=== PATIENT | female | born 1965 | race Caucasian/White ===

== ENCOUNTER 2017-07-19 16:59 | Emergency (ER) | payer SELFPAY ==
[2017-07-19 17:05] VITALS: BP 137/99
--- NOTE | 2017-07-19 17:34 | PHYS DOC ---
Adult General Chief Complaint Chief Complaint: MECHANICAL FALL HPI HPI 52-year-old female presents after fall at home. The patient was moving a table that was partially stuck to the floor. Let loose and gave way she flew over the tip wall and into a chair. She hit the right side of her face, her right ribs, and her right knee hit the ground. She already has a previous injury to the right knee. She was able to walk. Her greatest pain is in the right maxilla. She is concern for fracture. It is already bruised and mildly swollen. He denies being knocked out. She denies chest pain or shortness of breath. Her ribs do not hurt when she breathes. Review of Systems Review of Systems Constitutional: Denies fever or chills [] Eyes: Periorbital bruising and swelling of the right eye[] HENT: Denies nasal congestion or sore throat [] Respiratory: Denies cough or shortness of breath [] Cardiovascular: No additional information not addressed in HPI [] GI: Denies abdominal pain, nausea, vomiting, bloody stools or diarrhea [] : Denies dysuria or hematuria [] Musculoskeletal: Right rib pain, right knee pain.[] Integument: Denies rash or skin lesions [] Neurologic: Denies headache, focal weakness or sensory changes [] Endocrine: Denies polyuria or polydipsia [] All other systems were reviewed and found to be within normal limits, except as documented in this note. Physical Exam Physical Exam Constitutional: Well developed, well nourished, no acute distress, non-toxic appearance. [] HENT: The patient has bruising and swelling around the right eye, lateral aspect. Her maxilla is very tender to palpation.[] Eyes: PERRLA, EOMI, conjunctiva normal, no discharge. [] Neck: Normal range of motion, no tenderness, supple, no stridor. [] Cardiovascular:Heart rate regular rhythm, no murmur [] Lungs & Thorax: Bilateral breath sounds clear to auscultation [] Abdomen: Bowel sounds normal, soft, no tenderness, no masses, no pulsatile masses. [] Skin: Warm, dry, no erythema, no rash. [] Back: No tenderness, no CVA tenderness. [] Extremities: Ribs are mildly tender to palpation. No difficulty breathing. The right knee is painful over the patella. Ligaments are intact. [] Neurologic: Alert and oriented X 3, normal motor function, normal sensory function, no focal deficits noted. [] Psychologic: Affect normal, judgement normal, mood normal. [] EKG EKG [] Radiology/Procedures Radiology/Procedures Examination: 3 views of the facial bones HISTORY: History of fall, pain COMPARISON: None available. FINDINGS: No evidence of fall nasal bone fracture identified. The bilateral orbital portillo appear intact. The bilateral maxillary sinuses, mastoid air cells are clear. IMPRESSION: No obvious displaced fracture. Electronically signed by: Shubham Castillo MD (07/19/2017 6:02 PM) [facility] DICTATED AND SIGNED BY: SHUBHAM CASTILLO MD DATE: 07/19/17 1800 CC: BUCKY BENEDICT DO; RIVER LUCERO DO ~ Examination: 4 views of the right knee HISTORY: History of fall, right knee pain COMPARISON: None available Findings: The alignment of the knee joint grossly appears unremarkable. There is no obvious acute fracture identified. No significant knee joint effusion is identified. IMPRESSION: No acute osseous findings. Electronically signed by: Shubham Castillo MD (07/19/2017 6:03 PM) [facility] DICTATED AND SIGNED BY: SHUBHAM CASTILLO MD DATE: 07/19/17 1802 CC: BUCKY BENEDICT DO; RIVER LUCERO DO ~ [] Course & Med Decision Making Course & Med Decision Making Pertinent Labs and Imaging studies reviewed. (See chart for details) The patient's facial and knee x-rays are negative for fracture. Based on her exam, do not believe her about x-rays were necessary. I will discharge the patient with [place] 5/325 for pain. [] Dragon Disclaimer Dragon Disclaimer This electronic medical record was generated, in whole or in part, using a voice recognition dictation system. Departure Departure: Referrals: RIVER LUCERO DO (PCP) BUCKY BENEDICT DO July 19, 2017 17:34
--- NOTE | 2017-07-19 18:05 | RAD ---
Examination: 3 views of the facial bones HISTORY: History of fall, pain COMPARISON: None available. FINDINGS: No evidence of fall nasal bone fracture identified. The bilateral orbital portillo appear intact. The bilateral maxillary sinuses, mastoid air cells are clear. IMPRESSION: No obvious displaced fracture. Electronically signed by: Shubham Castillo MD (07/19/2017 6:02 PM) [facility]
--- NOTE | 2017-07-19 18:07 | RAD ---
Examination: 4 views of the right knee HISTORY: History of fall, right knee pain COMPARISON: None available Findings: The alignment of the knee joint grossly appears unremarkable. There is no obvious acute fracture identified. No significant knee joint effusion is identified. IMPRESSION: No acute osseous findings. Electronically signed by: Shubham Castillo MD (07/19/2017 6:03 PM) [facility]
[2017-07-19] MEDS ORDERED: HYDR-971 PO (18:20)
[2017-07-19] MEDS ORDERED: HYDROcodone/APAP 5/325MG 1 TAB TABLET ONE (18:22)
[2017-07-19] MEDS ORDERED: HYDROcodone/APAP 5/325MG 1 TAB TABLET PO ONE (18:30)
== END 2017-07-19 18:25 | disposition home or self-care (01) ==
LOC: ER 16:59
DX: S00.11XA Contusion of right eyelid and periocular area, initial encounter (principal); M25.561 Pain in right knee; R07.81 Pleurodynia; W18.09XA Striking against other object with subsequent fall, initial encounter; Y93.89 Activity, other specified; Y99.8 Other external cause status; Y92.89 Other specified places as the place of occurrence of the external cause
CPT/HCPCS: 70150; 73564; 99284

== ENCOUNTER 2017-11-01 11:46 | Emergency (ER) | payer SELFPAY ==
[~2017-11-01 11:46] MED LIST: HYDR-971 PO
[2017-11-01 12:00] VITALS: BP 128/88
[2017-11-01] MEDS ORDERED: HYDROcodone/APAP 5/325MG 1 TAB TABLET ONE (12:17)
[2017-11-01] MEDS ORDERED: HYDROcodone/APAP 5/325MG 1 TAB TABLET PO ONE (12:45)
--- NOTE | 2017-11-01 12:59 | RAD ---
EXAM: AP, oblique, lateral and tangential patellar views of the left knee DATE: 11/01/2017 12:15 PM INDICATION: Twisting injury 10/30/17 with pop, severe pain to left knee COMPARISON: No Prior FINDINGS/ IMPRESSION: No evidence of acute fracture or dislocation. Joint spaces are preserved without significant degenerative/proliferative change. No knee joint effusion. Neutral patellar tracking. Electronically signed by: Ian Fry MD (11/01/2017 12:56 PM) [facility]
[2017-11-01] MEDS ORDERED: HYDR-971 PO (13:06)
--- NOTE | 2017-11-01 13:06 | PHYS DOC ---
Past History Past Medical History: Hypertension Past Surgical History: Knee Replacement Smoking: Non-smoker Alcohol Use: None Drug Use: None Adult General Chief Complaint Chief Complaint: KNEE INJURY HPI HPI Patient is a 52 year old female who presents with complaining of left knee injury and pain. Patient states she twisted her left knee 3 days ago because of a bowel movement and since then has had pain and limited range of motion. Patient rated her pain severe with standing up patient states she had left knee surgery 9 years ago. Patient denies focal neuro deficit and other injuries. Review of Systems Review of Systems Constitutional: Denies fever or chills [] Eyes: Denies change in visual acuity, redness, or eye pain [] HENT: Denies nasal congestion or sore throat [] Respiratory: Denies cough or shortness of breath [] Cardiovascular: No additional information not addressed in HPI [] GI: Denies abdominal pain, nausea, vomiting, bloody stools or diarrhea [] : Denies dysuria or hematuria [] Musculoskeletal: Denies back pain, reports joint pain [] Integument: Denies rash or skin lesions [] Neurologic: Denies headache, focal weakness or sensory changes [] Endocrine: Denies polyuria or polydipsia [] All other systems were reviewed and found to be within normal limits, except as documented in this note. Current Medications Current Medications Current Medications Medications (Trade) Dose Ordered Sig/Brianna Start Time Stop Time Status Last Admin Dose Admin Acetaminophen/ Hydrocodone Bitart (Lortab 5/325) 1 tab STK-MED ONCE 11/01/17 12:17 11/01/17 12:18 DC Allergies Allergies Allergies Coded Allergies Type Severity Reaction Last Updated Verified NSAIDS (Non-Steroidal Anti-Inflamma Allergy Intermediate 07/19/17 Yes codeine Allergy Intermediate 07/19/17 Yes dicyclomine Allergy Intermediate 07/19/17 Yes gabapentin Allergy Intermediate 07/19/17 Yes tramadol Allergy Intermediate 07/19/17 Yes Physical Exam Physical Exam Constitutional: Well developed, well nourished, mild distress, non-toxic appearance. [] HENT: Normocephalic, atraumatic Eyes: PERRLA, EOMI, conjunctiva normal, no discharge. [] Neck: Normal range of motion, no tenderness, supple, no stridor. [] Cardiovascular:Heart rate regular rhythm, no murmur [] Lungs & Thorax: Bilateral breath sounds clear to auscultation [] Extremities: Left knee without deformity or edema or sign of injury, painful range of motion, no neurovascular deficit, no edema. [] Neurologic: Alert and oriented X 3, normal motor function, normal sensory function, no focal deficits noted. [] Psychologic: Affect normal, judgement normal, mood normal. [] Current Patient Data Vital Signs Vital Signs Date Time Temp Pulse Resp B/P (MAP) Pulse Ox O2 Delivery O2 Flow Rate FiO2 11/01/17 12:00 Room Air 11/01/17 12:00 98.0 96 20 96 EKG EKG [] Radiology/Procedures Radiology/[place] [address] IMAGING REPORT Signed PATIENT: KYLIE UPTON ACCOUNT: [id number] : 1965 LOCATION: ER AGE: 52 SEX: F EXAM STATUS: PRE ER ORD. PHYSICIAN: RUPA FISHER MD REASON: Twisting injury 10/30/17 with pop, severe pain to left knee PROCEDURE: KNEE LEFT 4V EXAM: AP, oblique, lateral and tangential patellar views of the left knee DATE: 11/01/2017 12:15 PM INDICATION: Twisting injury 10/30/17 with pop, severe pain to left knee COMPARISON: No Prior FINDINGS/ IMPRESSION: No evidence of acute fracture or dislocation. Joint spaces are preserved without significant degenerative/proliferative change. No knee joint effusion. Neutral patellar tracking. Electronically signed by: Ian Allen MD (11/01/2017 12:56 PM) [facility] DICTATED AND SIGNED BY: IAN ALLEN MD DATE: 11/01/17 0596 CC: RIVER LUCERO DO; RUPA FISHER MD ~ Course & Med Decision Making Course & Med Decision Making Pertinent Imaging studies reviewed. (See chart for details) Evaluation of patient in ER showed 52-year-old male patient with injury to left knee and complaining of pain that increases with walking. Patient had unremarkable physical exam. X-ray did not show abnormality. Ochoa wrap was applied and patient treated with [place] with improvement of her pain. Patient instructed to use Crutches and follow up with her primary care physician/ orthopedist physician. [] Dragon Disclaimer Dragon Disclaimer This electronic medical record was generated, in whole or in part, using a voice recognition dictation system. Departure Departure: Impression: Primary Impression: Left knee sprain Disposition: HOME, SELF-CARE (at 1305) Condition: IMPROVED Referrals: RIVER LUCERO DO (PCP) Patient Instructions: Knee Sprain Additional Instructions: Apply ice on your left knee Follow-up with your primary care physician in 3-5 days Return to ER if not getting better Scripts Hydrocodone Bit/Acetaminophen ([place] 5-325 TABLET) 1 Each Tablet 1 TAB PO PRN Q6HRS PRN for PAIN, #14 TAB 0 Refills Prov: RUPA FISHER MD 11/01/17 RUPA FISHER MD Nov 01, 2017 13:06
== END 2017-11-01 13:00 | disposition home or self-care (01) ==
LOC: ER 11:46
DX: S83.92XA Sprain of unspecified site of left knee, initial encounter (principal); I10 Essential (primary) hypertension; Z88.6 Allergy status to analgesic agent; Z88.5 Allergy status to narcotic agent; Z88.8 Allergy status to other drugs, medicaments and biological substances; X50.1XXA Overexertion from prolonged static or awkward postures, initial encounter; Y93.89 Activity, other specified; Y92.89 Other specified places as the place of occurrence of the external cause; Y99.8 Other external cause status
CPT/HCPCS: 73564; 99284

== ENCOUNTER 2018-01-16 11:59 | Emergency (ER) | payer SELFPAY ==
[~2018-01-16] VITALS: Ht 170.2 cm; Wt 86.6 kg
[~2018-01-16 11:59] MED LIST changes: +HYDR-3165 PO; -HYDR-971 PO
[2018-01-16 12:22] VITALS: BP 133/86
--- NOTE | 2018-01-16 12:37 | PHYS DOC ---
Past History Past Medical History: Hypertension Past Surgical History: Knee Replacement Smoking: Non-smoker Alcohol Use: None Drug Use: None Adult General Chief Complaint Chief Complaint: FOOT INJURY PAIN HPI HPI 52-year-old female presents with right heel pain. Patient states that she has had some increased soreness in her right heel for last few days because she has been doing a lot more walking than usual. She did not walk yesterday or today. She states when she woke up this morning the pain was increased. Her foot was hanging off the bed when she woke up. She describes it as a moderate, sharp pain in the medial heel region. She states that pushing on that area is painful and standing on the foot is painful. She denies any direct trauma. No history of previous injury. Review of Systems Review of Systems Constitutional: Denies fever or chills [] Eyes: Denies change in visual acuity, redness, or eye pain [] HENT: Denies nasal congestion or sore throat [] Respiratory: Denies cough or shortness of breath [] Cardiovascular: No additional information not addressed in HPI [] GI: Denies abdominal pain, nausea, vomiting, bloody stools or diarrhea [] : Denies dysuria or hematuria [] Musculoskeletal: Right foot pain [] Integument: Denies rash or skin lesions [] Neurologic: Denies headache, focal weakness or sensory changes [] Endocrine: Denies polyuria or polydipsia [] All other systems were reviewed and found to be within normal limits, except as documented in this note. Allergies Allergies Allergies Coded Allergies Type Severity Reaction Last Updated Verified NSAIDS (Non-Steroidal Anti-Inflamma Allergy Intermediate 07/19/17 Yes codeine Allergy Intermediate 07/19/17 Yes dicyclomine Allergy Intermediate 07/19/17 Yes gabapentin Allergy Intermediate 07/19/17 Yes tramadol Allergy Intermediate 07/19/17 Yes Physical Exam Physical Exam Constitutional: Well developed, well nourished, no acute distress, non-toxic appearance. [] HENT: Normocephalic, atraumatic, bilateral external ears normal, oropharynx moist, no oral exudates, nose normal. [] Eyes: PERRLA, EOMI, conjunctiva normal, no discharge. [] Neck: Normal range of motion, no tenderness, supple, no stridor. [] Cardiovascular:Heart rate regular rhythm, no murmur [] Lungs & Thorax: Bilateral breath sounds clear to auscultation [] Abdomen: Bowel sounds normal, soft, no tenderness, no masses, no pulsatile masses. [] Skin: Warm, dry, no erythema, no rash. [] Back: No tenderness, no CVA tenderness. [] Extremities: Mild swelling of the right plantar heel without erythema, warmth, or ecchymosis. Tenderness with palpation[] Neurologic: Alert and oriented X 3, normal motor function, normal sensory function, no focal deficits noted. [] Psychologic: Affect normal, judgement normal, mood normal. [] Current Patient Data Vital Signs Vital Signs Date Time Temp Pulse Resp B/P (MAP) Pulse Ox O2 Delivery O2 Flow Rate FiO2 01/16/18 12:22 98.1 86 16 97 Room Air EKG EKG [] Radiology/Procedures Radiology/Procedures [] Impressions: 3 view right foot 01/16/2018 CLINICAL INDICATION: Right foot pain. COMPARISON: None. FINDINGS: No acute fracture or traumatic malalignment. Joint spaces are maintained. Minimal infracalcaneal spurring. Note is made of an os vesalianum with adjacent irregularity and osteophyte formation interposed between the base of the 5th metatarsal and the ossicle. IMPRESSION: 1. No acute osseous abnormality. 2. 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 Clinical correlation for point tenderness at this region is recommended. Electronically signed by: Gurpreet Bello MD (01/16/2018 12:57 PM) [facility] DICTATED AND SIGNED BY: GURPREET BELLO MD DATE: 01/16/18 1249 CC: BUCKY BENEDICT DO; RIVER LUCERO DO Course & Med Decision Making Course & Med Decision Making Pertinent Labs and Imaging studies reviewed. (See chart for details) The patient's x-rays negative for acute fracture. There are some degenerative change at the base of the fifth metatarsal. This is across the foot from where she has the most pain. This is likely deep bruising, overuse fatigue, or exacerbation of pain from her chronic x-ray finding. I will advise ibuprofen and Tylenol at home. She is stable for discharge at this time. [] Dragon Disclaimer Dragon Disclaimer This electronic medical record was generated, in whole or in part, using a voice recognition dictation system. Departure Departure: Referrals: RIVER LUCERO DO (PCP) BUCKY BENEDICT DO Jan 16, 2018 12:37
--- NOTE | 2018-01-16 13:00 | RAD ---
3 view right foot 01/16/2018 CLINICAL INDICATION: Right foot pain. COMPARISON: None. FINDINGS: No acute fracture or traumatic malalignment. Joint spaces are maintained. Minimal infracalcaneal spurring. Note is made of an os vesalianum with adjacent irregularity and osteophyte formation interposed between the base of the 5th metatarsal and the ossicle. IMPRESSION: 1. No acute osseous abnormality. 2. 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 Clinical correlation for point tenderness at this region is recommended. Electronically signed by: Giancarlo Bello MD (01/16/2018 12:57 PM) [facility]
[2018-01-16] MEDS ORDERED: HYDR-3165 PO (13:12)
== END 2018-01-16 13:17 | disposition home or self-care (01) ==
LOC: ER 11:59
DX: M79.671 Pain in right foot (principal); G89.29 Other chronic pain; I10 Essential (primary) hypertension; Z96.659 Presence of unspecified artificial knee joint; Z88.6 Allergy status to analgesic agent; Z88.5 Allergy status to narcotic agent; Z88.8 Allergy status to other drugs, medicaments and biological substances
CPT/HCPCS: 73630; 99283

== ENCOUNTER 2018-06-18 12:25 | Emergency (ER) | payer SELFPAY ==
[~2018-06-18] VITALS: Ht 170.2 cm; Wt 74.8 kg
[2018-06-18 13:13] LABS: BACTERIA,URINE 0 /HPF (0-FEW); BILIRUBIN,URINE NEG (NEG); CLARITY,URINE CLEAR; COLOR,URINE STRAW; GLUCOSE,URINE NEG (NEG); NITRITE,URINE NEG (NEG); RBC,URINE 0 /HPF (0-2); SQUAMOUS EPITHELIAL CELL,UR OCC /LPF; UROBILINOGEN,URINE 0.2 mg/dL (0.2 mg/dL); WBC,URINE 0 /HPF (0-4)
[2018-06-18 13:27] VITALS: BP 150/90
[2018-06-18] MEDS ORDERED: HYDROcodone/APAP 7.5/325MG 1 TAB TABLET PO ONE (13:45)
--- NOTE | 2018-06-18 14:33 | PHYS DOC ---
Past History Past Medical History: Anxiety, Depression Past Surgical History: Knee Replacement, Other Smoking: Non-smoker Alcohol Use: None Drug Use: None Adult General Chief Complaint Chief Complaint: ABDOMINAL PAIN HPI HPI Patient is a 53 year old female who presents with complaint of pelvic pain. Patient states that she has had recurrent pelvic pain off and on for several years and notes that this was secondary to having a previous surgery that involved use of bladder mesh. States that currently she does not follow with a primary doctor. Notes that her pain has been worsening over the past 2 days. Started having pinkish discharge yesterday which she thought could possibly be bleeding. Denies any urinary symptoms. Rates pain as 8 out of 10. Denies associated vomiting, fever, diarrhea, or constipation. States that she came as she wants to receive medication to help control her pain. She does not currently follow with a specialist and has not seen her primary doctor in 3 months. States that she has not been following with her primary for this specific problem. Patient states that she also feels very anxious and states that this typically will exacerbate her symptoms. Patient has been seen in this emergency department on 3 prior occasions and received Naselle prescriptions at each visit for different pain complaints. States she has tried taking Tylenol at home for her symptoms. The patient lists several allergies to other pain medications including NSAIDs, tramadol, codeine, and gabapentin. Review of Systems Review of Systems Constitutional: Denies fever or chills [] Eyes: Denies change in visual acuity, redness, or eye pain [] HENT: Denies nasal congestion or sore throat [] Respiratory: Denies cough or shortness of breath [] Cardiovascular: Denies chest pain or edema[] GI: Denies abdominal pain, nausea, vomiting, bloody stools or diarrhea [] : Denies dysuria or hematuria [] Musculoskeletal: Denies back pain or joint pain [] Integument: Denies rash or skin lesions [] Neurologic: Denies headache, focal weakness or sensory changes [] All other systems were reviewed and found to be within normal limits, except as documented in this note. Current Medications Current Medications Current Medications Medications (Trade) Dose Ordered Sig/Brianna Start Time Stop Time Status Last Admin Dose Admin Acetaminophen/ Hydrocodone Bitart (Lortab 7.5/325) 1 tab 1X ONCE 06/18/18 13:45 06/18/18 13:46 DC 06/18/18 13:48 1 TAB Allergies Allergies Allergies Coded Allergies Type Severity Reaction Last Updated Verified NSAIDS (Non-Steroidal Anti-Inflamma Allergy Intermediate 07/19/17 Yes codeine Allergy Intermediate 07/19/17 Yes dicyclomine Allergy Intermediate 07/19/17 Yes gabapentin Allergy Intermediate 07/19/17 Yes tramadol Allergy Intermediate 07/19/17 Yes Physical Exam Physical Exam Constitutional: Well developed, well nourished, afebrile, appears anxious and in moderate discomfort. [] HENT: Normocephalic, atraumatic, bilateral external ears normal, oropharynx moist, no oral exudates, nose normal. [] Eyes: PERRLA, EOMI, conjunctiva normal, no discharge. [] Neck: Normal range of motion, no tenderness, supple, no stridor. [] Cardiovascular:Heart rate regular rhythm, no murmur [] Lungs & Thorax: Bilateral breath sounds clear to auscultation [] Abdomen: Bowel sounds normal, soft, suprapubic tenderness to palpation, no masses, no pulsatile masses. [] Skin: Warm, dry, no erythema, no rash. [] Back: No tenderness, no CVA tenderness. [] Extremities: No tenderness, no cyanosis, no clubbing, ROM intact, no edema. [] Neurologic: Alert and oriented X 3, normal motor function, normal sensory function, no focal deficits noted. [] Current Patient Data Vital Signs Vital Signs Date Time Temp Pulse Resp B/P (MAP) Pulse Ox O2 Delivery O2 Flow Rate FiO2 06/18/18 13:48 16 97 Room Air 06/18/18 13:27 86 150/90 (110) 06/18/18 12:28 98.4 Lab Results Laboratory Tests Test 06/18/18 12:40 Urine Collection Type Unknown Urine Color Straw Urine Clarity Clear Urine pH 5.5 Urine Specific [place] <=1.005 Urine Protein Neg (NEG-TRACE) Urine Glucose (UA) Neg mg/dL (NEG) Urine Ketones (Stick) Neg mg/dL (NEG) Urine Blood Neg (NEG) Urine Nitrite Neg (NEG) Urine Bilirubin Neg (NEG) Urine Urobilinogen Dipstick 0.2 mg/dL (0.2 mg/dL) Urine Leukocyte Esterase Neg (NEG) Urine RBC 0 /HPF (0-2) Urine WBC 0 /HPF (0-4) Urine Squamous Epithelial Cells Occ /LPF Urine Bacteria 0 /HPF (0-FEW) EKG EKG Not performed[] Radiology/Procedures Radiology/Procedures Not performed[] Course & Med Decision Making Course & Med Decision Making Pertinent Labs and Imaging studies reviewed. (See chart for details) Patient's vital signs are stable. The patient was displaying tenderness in the suprapubic area. I offered to the patient to perform a pelvic exam to further investigate potential causes of her pain. She initially agreed to this and her pain was addressed with an oral Naselle which was given to her. Shortly after receiving the medication, the patient decided that she wanted to sign out AGAINST MEDICAL ADVICE. She did not speak with me regarding this decision and asked that the nurse provide her paperwork for her to sign out. I have high suspicion that this patient may have been drug-seeking. I was unable to provide her any discharge paperwork. Staff instructed her to return to the emergency department for any worsening or severe symptoms.[] Dragon Disclaimer Dragon Disclaimer This electronic medical record was generated, in whole or in part, using a voice recognition dictation system. Departure Departure: Impression: Primary Impression: Pelvic pain Disposition: 07 AGAINST MEDICAL ADVICE Condition: STABLE Referrals: PCP,NO (PCP) ANABEL STEELE MD Jun 18, 2018 14:33
== END 2018-06-18 14:36 | disposition left against medical advice (07) ==
LOC: ER 12:25
DX: R10.2 Pelvic and perineal pain (principal); F41.9 Anxiety disorder, unspecified; F32.9 Major depressive disorder, single episode, unspecified; Z88.6 Allergy status to analgesic agent; Z88.5 Allergy status to narcotic agent; Z88.8 Allergy status to other drugs, medicaments and biological substances
CPT/HCPCS: 81001; 99283